=== PATIENT | male | born 1935 | race Caucasian/White ===

== ENCOUNTER 2023-01-14 05:40 | Day surgery (SDC) | payer OTHER ==
[~2023-01-14] VITALS: Ht 172.7 cm; Wt 66.7 kg
[2023-01-14] MEDS ORDERED: SIMETHICONE 40 MG/0.6 ML ML ONE (07:07)
[2023-01-14] MEDS ORDERED: MIDAZOLAM HCL 5 MG/5 ML VIAL ONE (07:08)
[2023-01-14] MEDS ORDERED: MEPERIDINE 100 MG INJ. 100 MG/ML VIAL ONE (07:08)
[2023-01-14 12:42] VITALS: O2SAT 99
[2023-01-14 14:42] VITALS: BP_SYST 119; PULSE 44; RESP 10
== END 2023-01-14 09:05 | disposition home or self-care (01) ==
LOC: SMU 05:40 → SDS 05:40
PROVIDERS: ATTEND Internal Medicine Gastroenterology
DX: R19.4 Change in bowel habit (principal); D12.0 Benign neoplasm of cecum; D12.2 Benign neoplasm of ascending colon; R19.5 Other fecal abnormalities; R15.9 Full incontinence of feces; Z86.010 Personal history of colon polyps; I10 Essential (primary) hypertension; I48.91 Unspecified atrial fibrillation; Z95.1 Presence of aortocoronary bypass graft; K57.30 Diverticulosis of large intestine without perforation or abscess without bleeding; K64.8 Other hemorrhoids; M10.9 Gout, unspecified; K58.9 Irritable bowel syndrome, unspecified; Z87.891 Personal history of nicotine dependence; Z95.5 Presence of coronary angioplasty implant and graft; Z79.899 Other long term (current) drug therapy
CPT/HCPCS: 45380; 45385; 88305; J2175; J2250